=== PATIENT | female | born 1970 | race Caucasian/White ===

== ENCOUNTER → 2017-08-24 | Outpatient (CLI) | payer OTHER ==
[~2017-08-24] MED LIST: ALBU2.5V5; ALBU8HFA2 INH; ASPI81CH PO; ASPI81EC PO; ATOR40TA; CYCL10 PO; DIPATR PO; Estradiol0.5 MG; FLUSAL1005 IH; FURO20 PO; GABA800 PO; HYDACE7.5 PO; HYDR-86; HYDR1TAB94 PO; MELO7.5 PO; METCAR500 PO; Nortriptyline H50 MG; OMEP20ER PO; OXYACE5T PO; Omeprazole20 M1 PO; POTCHL10ER; PRED10 PO; RXOXYACE PO; TRAZ150T57 PO; TRAZ50 PO; Zofran Odt4 MG PO
[2017-08-26 12:29] LABS: Codeine Not Detected (NOTDET); Hydrocodone 74 ng/mL (NOTDET); Hydromorphone Not Detected (NOTDET); Morphine Not Detected (NOTDET); Norhydrocodone 60 ng/mL (NOTDET); Noroxycodone Not Detected (NOTDET)
== END | disposition home or self-care (01) ==
LOC: LAB SRC 15:05
PROVIDERS: Physician Assistant
DX: G89.4 Chronic pain syndrome (principal)
CPT/HCPCS: G0480

== ENCOUNTER → 2017-11-14 | Outpatient (CLI) | payer OTHER ==
[~2017-11-14] MED LIST changes: -ALBU2.5V5; -HYDR-86; -POTCHL10ER
[2017-11-15 10:42] LABS: Adenovirus F 40/41 Not Detected (NOT DETECT); Astrovirus Not Detected (NOT DETECT); Campylobacter Sp Not Detected (NOT DETECT); Cryptosporidium Not Detected (NOT DETECT); Cyclospora Cayetanensis Not Detected (NOT DETECT); E. Coli O157 Not Detected (NOT DETECT); Entamoeba Histolytica Not Detected (NOT DETECT); Enteroaggregative E. coli-EAEC Not Detected (NOT DETECT); Enteropathogenic E. coli-EPEC Not Detected (NOT DETECT); Enterotoxigenic E. coli-ETEC Not Detected (NOT DETECT); Giardia Lamblia Not Detected (NOT DETECT); Norovirus GI/GII Not Detected (NOT DETECT); Plesiomonas Shigelloides Not Detected (NOT DETECT); Rotavirus A Not Detected (NOT DETECT); Salmonella Sp Not Detected (NOT DETECT); Sapovirus Not Detected (NOT DETECT); Shiga Toxin-prod E. coli-STEC Not Detected (NOT DETECT); Shigella/Enteroin E. coli-EIEC Not Detected (NOT DETECT); Vibrio Cholerae Not Detected (NOT DETECT); Vibrio Sp Not Detected (NOT DETECT); Yersinia Enterocolitica Not Detected (NOT DETECT)
== END ==
LOC: LAB SRC 17:45 → LAB SHORT 17:45
PROVIDERS: Physician Assistant
DX: K31.9 Disease of stomach and duodenum, unspecified (principal); R63.4 Abnormal weight loss; R63.0 Anorexia
CPT/HCPCS: 87507

== ENCOUNTER → 2017-12-01 | Outpatient (CLI) | payer OTHER | END | disposition home or self-care (01) | LOC: LAB SHORT 16:23 → LAB 16:23 | PROVIDERS: Obstetrics & Gynecology | DX: Z01.419 Encounter for gynecological examination (general) (routine) without abnormal findings (principal) | CPT/HCPCS: 87624; G0123 ==

== ENCOUNTER → 2018-07-06 | Outpatient (CLI) | payer OTHER ==
[~2018-07-06] MED LIST changes: +ALBU2.5V5; +HYDR-86; +POTCHL10ER
== END | disposition home or self-care (01) ==
LOC: LAB SHORT 14:25 → LAB EV 14:25
DX: R20.2 Paresthesia of skin (principal)
CPT/HCPCS: 82607

== ENCOUNTER → 2018-12-19 | Outpatient (CLI) | payer OTHER ==
[2018-12-21 15:06] LABS: HPV 16 Negative (Negative); HPV 18 Negative (Negative); HPV OTHER HR TYPES Positive (Negative)
== END | disposition home or self-care (01) ==
LOC: LAB 15:57 → LAB SHORT 15:57
PROVIDERS: Obstetrics & Gynecology
DX: Z01.419 Encounter for gynecological examination (general) (routine) without abnormal findings (principal)
CPT/HCPCS: 87624; 87625; G0123

== ENCOUNTER 2019-02-03 13:46 | Emergency (ER) | payer OTHER ==
[~2019-02-03] VITALS: Ht 152.4 cm; Wt 79.4 kg
[~2019-02-03 13:46] MED LIST changes: -ATOR40TA; +ATOR40TA PO
[2019-02-03] MEDS ORDERED: CYCL10 PO (14:53)
[2019-02-03] MEDS ORDERED: PREG150 PO (14:54)
== END 2019-02-03 14:58 | disposition home or self-care (01) ==
LOC: ER 13:46
DX: M62.830 Muscle spasm of back (principal); J45.909 Unspecified asthma, uncomplicated; F41.9 Anxiety disorder, unspecified; F32.9 Major depressive disorder, single episode, unspecified; Z88.1 Allergy status to other antibiotic agents; Z88.5 Allergy status to narcotic agent; Z88.6 Allergy status to analgesic agent
CPT/HCPCS: 99283

== ENCOUNTER 2019-04-27 00:37 | Observation (INO) | payer OTHER ==
[~2019-04-27] VITALS: Ht 152.4 cm; Wt 81.7 kg
[~2019-04-27 00:37] MED LIST changes: +PREG150 PO
[2019-04-27] MEDS ORDERED: FERSU300 PO (00:56)
[2019-04-27] MEDS ORDERED: Prednisone10 MG PO ×2 (00:58→14:59)
[2019-04-27] MEDS ORDERED: ALBU90OI INH (00:58)
[2019-04-27] MEDS ORDERED: Black Cohosh540 MG PO (00:59)
[2019-04-27] MEDS ORDERED: ZYRTEC10 M2 PO (01:00)
[2019-04-27] MEDS ORDERED: DICLO GEL 1%-X1 EACH TOP (01:01)
[2019-04-27] MEDS ORDERED: MILK THISTLE175 MG PO (01:02)
[2019-04-27] MEDS ORDERED: MYRBETRIQ25 MG PO (01:03)
[2019-04-27 01:18] LABS: BASOPHILS ABSOLUTE AUTO 0.02 K/mm3 (0.00-0.23); BASOPHILS PERCENT AUTO 0 % (0-2); EOSINOPHILS ABSOLUTE AUTO 0.02 K/mm3 (0.00-0.68); EOSINOPHILS PERCENT AUTO 0 % (0-6); Hematocrit 34.2 % (33.0-51.0); Hemoglobin 10.1 g/dL (11.5-16.0); IMMATURE GRAN ABSOLUTE AUTO 0.34 K/mm3 (0.00-0.10); IMMATURE GRAN PERCENT AUTO 2 % (0-1); LYMPHOCYTES ABSOLUTE AUTO 1.64 K/mm3 (0.84-5.20); LYMPHOCYTES PERCENT AUTO 9 % (21-46); MONOCYTES PERCENT AUTO 7 % (4-13); Mean Corpuscular HGB 25.4 pg (26.0-34.0); Mean Corpuscular HGB Conc 29.5 g/dL (31.5-36.5); Mean Platelet Volume 10.9 fL (9.1-12.4); NEUTROPHILS ABSOLUTE AUTO 15.68 K/mm3 (1.96-9.15); NEUTROPHILS PERCENT AUTO 83 % (41-73); Platelet Count 194 K/mm3 (150-400); RDW Coefficient Variation 27.5 % (11.7-14.2); RDW Standard Deviation 83.7 fL (35.1-46.3); Red Blood Cell Count 3.98 M/mm3 (3.80-5.20)
[2019-04-27 01:20] LABS: Mean Corpuscular Volume 86 fL (80-100)
[2019-04-27 01:30] LABS: Alanine Aminotransfer (ALT/SGP 70 U/L (12-78); Albumin, Blood 2.8 g/dL (3.4-5.0); Albumin/Globulin Ratio 0.7 (0.8-1.8); Alk Phos 244 U/L (50-136); Anion Gap 7 mmol/L (6-16); Aspartate Aminotrans (AST/SGOT 126 U/L (12-37); Bilirubin, Total 1.2 mg/dL (0.1-1.0); Blood Urea Nitrogen 10 mg/dL (8-24); Bun/Creatinine Ratio 16.4 (12.0-20.0); CO2, Blood 26 mmol/L (21-32); Calcium, Blood 8.3 mg/dL (8.5-10.1); Chloride, Blood 110 mmol/L (98-108); Creatinine, Blood 0.61 mg/dL (0.40-1.00); Ethanol (Alcohol), Blood, Med <3 mg/dL; Glomerular Filtration Rate >60 (60-); Glucose, Blood 124 mg/dL (70-99); Potassium, Blood 3.6 mmol/L (3.5-5.5); Sodium, Blood 143 mmol/L (136-145); Total Protein, Blood 6.8 g/dL (6.4-8.2)
[2019-04-27 04:43] LABS: Source, Urine Clean Catch
[2019-04-27 04:45] LABS: Bilirubin, Urine Neg (Neg); Blood, Urine Neg (Neg); Glucose Qualitative, Urine Neg (Neg); Ketones, Urine Neg (Neg); Leukocyte Esterase, Urine 1+ (Neg); Nitrite, Urine Neg (Neg); Protein, Urine 1+ (Neg); Urobilinogen, Urine NORM (Normal); pH, Urine 6.5 (5.0-8.0)
[2019-04-27 04:52] LABS: Appearance, Urine Clear (Clear); Color, Urine Yellow (P-Yellow)
[2019-04-27 04:53] LABS: Bacteria Few /hpf; Red Blood Cells, Urine Not Seen /hpf (0-2); Squamous Epithelial Cells Few /hpf (Few)
[2019-04-27 06:07] LABS: International Normalized Ratio 1.07; Prothrombin Time Results 11.3 Sec (9.7-11.5)
[2019-04-27 11:41] LABS: Automated BF WBC Count 0.126 K/mm3 (0-999); Body Fluid WBC Count 126 /mm3 (0-999)
[2019-04-27 12:03] LABS: Albumin, Body Fluid 0.6 g/dL; Lactate Dehydrogenase, Body Fl 43 U/L
[2019-04-27] MEDS ORDERED: ANORO ELLIPTA1 EACH INH (12:04)
[2019-04-27] MEDS ORDERED: Hydrocodone-Ap1 EA26 PO (12:05)
[2019-04-27] MEDS ORDERED: PREG150 PO (12:05)
[2019-04-27] MEDS ORDERED: DICLOFENAC SOD100 G1 TOP (12:06)
--- NOTE | 2019-04-27 12:25 | NUR ---
PATIENT ARRIVED VIA GURNEY. REPORTS 01/24 ABDOMINAL PAIN. LUNGS CLEAR/DIM, ON RA. 20G IV TO R AC WNL AND SL. PARACENTESIS PERFORMED THIS AM, BAND-AID TO ABDOMEN REMAINS C/D/I. L BKA, PATIENT USES PRAOTHESIS. REGULAR DIET ORDERED. PATIENT DENIES ANY NAUESA. SMALL SCABS WITH SOME MILD BRUISING FROM PATIENT SCRATCHING ABDOMEN AND HIPS. NO VISIBLE RASH NOTED. NO TELE, ON RA. ORIENTED TO ROOM AND USE OF CALL LIGHT. INSTRUCTED TO CALL FOR ASSISTANCE.
[2019-04-27 12:30] LABS: RBC Count, Body Fluid 128 /mm3 (0-0)
[2019-04-27 12:34] LABS: Appearance, Body Fluid Hazy (Clear); Color, Body Fluid L Yellow (None-Yellow); Total Cell Count, Body Fluid 100
[2019-04-28 04:49] LABS: BASOPHILS ABSOLUTE AUTO 0.03 K/mm3 (0.00-0.23); BASOPHILS PERCENT AUTO 0 % (0-2); EOSINOPHILS ABSOLUTE AUTO 0.04 K/mm3 (0.00-0.68); EOSINOPHILS PERCENT AUTO 0 % (0-6); Hematocrit 36.6 % (33.0-51.0); Hemoglobin 10.8 g/dL (11.5-16.0); IMMATURE GRAN ABSOLUTE AUTO 0.27 K/mm3 (0.00-0.10); IMMATURE GRAN PERCENT AUTO 1 % (0-1); LYMPHOCYTES ABSOLUTE AUTO 2.17 K/mm3 (0.84-5.20); LYMPHOCYTES PERCENT AUTO 10 % (21-46); MONOCYTES ABSOLUTE AUTO 1.23 K/mm3 (0.16-1.47); MONOCYTES PERCENT AUTO 6 % (4-13); Mean Corpuscular HGB 25.8 pg (26.0-34.0); Mean Corpuscular HGB Conc 29.5 g/dL (31.5-36.5); Mean Corpuscular Volume 88 fL (80-100); NEUTROPHILS ABSOLUTE AUTO 17.11 K/mm3 (1.96-9.15); NEUTROPHILS PERCENT AUTO 82 % (41-73); Platelet Count 199 K/mm3 (150-400); RDW Standard Deviation 87.6 fL (35.1-46.3); Red Blood Cell Count 4.18 M/mm3 (3.80-5.20); White Blood Cell Count 20.85 K/mm3 (4.00-11.30)
--- NOTE | 2019-04-28 04:54 | NUR ---
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 PT'S STOMACH IS DISTENDED AND FIRM. SHE STATED ABD FELT VERY STRECHED. PT GOT UP AND WALKED IN THE HALLS AND FELT A LITTLE BETTER AFTERWARDS. PT HAS CHRONIC BACK PAIN. SHE STATED HER ABD WAS NOT PAINFUL BUT HAS "DISCOMFORT". PAIN MED GIVEN PER EMAR FOR BACK PAIN. NO ACUTE CHANGES. PT WAS PLEASANT AND COOPERATIVE. PT WENT OUTSIDE ONCE IN THE EARLY AM TO HAVE A CIGARETTE. VSS, WILL CONINTUE TO [facility].
[2019-04-28 05:12] LABS: Alanine Aminotransfer (ALT/SGP 70 U/L (12-78); Albumin, Blood 2.9 g/dL (3.4-5.0); Albumin/Globulin Ratio 0.7 (0.8-1.8); Alk Phos 277 U/L (50-136); Anion Gap 9 mmol/L (6-16); Aspartate Aminotrans (AST/SGOT 136 U/L (12-37); Bilirubin, Total 1.1 mg/dL (0.1-1.0); Blood Urea Nitrogen 14 mg/dL (8-24); Bun/Creatinine Ratio 18.2 (12.0-20.0); CO2, Blood 23 mmol/L (21-32); Calcium, Blood 8.9 mg/dL (8.5-10.1); Chloride, Blood 112 mmol/L (98-108); Creatinine, Blood 0.77 mg/dL (0.40-1.00); Globulin, Blood 4.2 g/dL (2.2-4.0); Glomerular Filtration Rate >60 (60-); Glucose, Blood 123 mg/dL (70-99); Potassium, Blood 4.1 mmol/L (3.5-5.5); Sodium, Blood 144 mmol/L (136-145); Total Protein, Blood 7.1 g/dL (6.4-8.2)
[2019-04-28] MEDS ORDERED: Nicoderm Cq1 EAC1 TOP (10:58)
[2019-04-28] MEDS ORDERED: CIPR500 PO (10:59)
--- NOTE | 2019-04-28 12:47 | NUR ---
PT DISCHARGED HOME. MEDICATIONS FAXED TO [facility] IN [place]. DISCHARGE INFORMATION REVIEWED. PT ADVISED ABOUT FOLLOWUP APPOINTMENTS. SOME QUESTIONS ABOUT D/C MEDICATIONS. INSTRUCTED TO BRING MEDICATION LIST TO PRIMARY CARE APT.
== END 2019-04-28 11:42 | disposition home or self-care (01) ==
LOC: ER 00:37 → ERHOLD 00:38 → MEDS 12:12 → ENPENDDIS 04-28 10:34 → MEDS 04-28 11:42
PROVIDERS: Emergency Medicine; ADMIT Internal Medicine
PROC: 0W9G3ZZ Drainage of Peritoneal Cavity, Percutaneous Approach (ICD-10-PCS; principal; 2019-04-27)
DX: K70.31 Alcoholic cirrhosis of liver with ascites (principal); J44.9 Chronic obstructive pulmonary disease, unspecified; F32.9 Major depressive disorder, single episode, unspecified; F41.9 Anxiety disorder, unspecified; K21.9 Gastro-esophageal reflux disease without esophagitis; E78.5 Hyperlipidemia, unspecified; G62.9 Polyneuropathy, unspecified; D50.9 Iron deficiency anemia, unspecified; K72.90 Hepatic failure, unspecified without coma; F17.210 Nicotine dependence, cigarettes, uncomplicated; K82.8 Other specified diseases of gallbladder; T38.0X5A Adverse effect of glucocorticoids and synthetic analogues, initial encounter; D72.829 Elevated white blood cell count, unspecified; Z89.512 Acquired absence of left leg below knee; Z79.899 Other long term (current) drug therapy; Z88.5 Allergy status to narcotic agent; Z88.0 Allergy status to penicillin
CPT/HCPCS: 36415; 49083; 71046; 74177; 80053; 81001; 82042; 83615; 83690; 83880; 84100; 85025; 85027; 85610; 87070; 87077; 87086; 87186; 87205; 88108; 89051; 94640; 94760; 96365-59; 96366; 96367; 96375; 96376; 99285-25; G0378; G0480; J0696; J1170; J3010; J7050; J7512; P9046; Q9967

== ENCOUNTER → 2019-05-04 | Outpatient (CLI) | payer OTHER ==
[~2019-05-04] MED LIST changes: +ALBU90OI INH; +ANORO ELLIPTA1 EACH INH; +Black Cohosh540 MG PO; +CIPR500 PO; +DICLO GEL 1%-X1 EACH TOP; +DICLOFENAC SOD100 G1 TOP; +FERSU300 PO; +Hydrocodone-Ap1 EA26 PO; +MILK THISTLE175 MG PO; +MYRBETRIQ25 MG PO; +Nicoderm Cq1 EAC1 TOP; +Prednisone10 MG PO; +ZYRTEC10 M2 PO
[2019-05-07 14:25] LABS: Stool Occult Bld Immuno 1 Positive (NEGATIVE)
== END | disposition home or self-care (01) ==
LOC: LAB 12:45 → LAB SHORT 12:45
PROVIDERS: Physician Assistant
DX: Z12.11 Encounter for screening for malignant neoplasm of colon (principal)
CPT/HCPCS: G0328